=== PATIENT | female | born 1990 | race African-American/Black ===

== ENCOUNTER 2020-03-01 03:15 | Emergency (ER) | payer MEDICAID ==
[~2020-03-01] VITALS: Ht 177.8 cm; Wt 64.0 kg
[2020-03-01] MEDS ORDERED: ACETAMINOPHEN 325MG TABLET PO ONE (03:45)
[2020-03-01 05:28] LABS: CHLORIDE 109 mEq/L (98-107)
[2020-03-01 05:29] LABS: BASOPHILS % 0.7 % (0.0-2.0); EOSINOPHILS % 1.2 % (0.0-5.0); HEMATOCRIT. 36.7 % (36.0-48.0); HEMOGLOBIN. 12.6 g/dL (12.0-16.0); LYMPHOCYTES % 28.6 % (20.0-50.0); MEAN CORPUSCULAR VOLUME 90.5 fL (81.0-99.0); MONOCYTES % 5.8 % (2.0-8.0); NEUTROPHILS % 63.7 % (40.0-76.0); PLATELET 201 x1000/uL (130-400); RED BLOOD CELL COUNT 4.06 mill/uL (4.2-5.4); RED CELL DISTRIBUTION WIDTH 13.7 % (11.6-14.6)
[2020-03-01 05:32] LABS: ETHANOL BLOOD < 10 mg/dL
[2020-03-01 05:34] LABS: PROTHROMBIN TIME 11.2 sec (9.6-11.0)
[2020-03-01 05:45] LABS: HCG SCREEN NEGATIVE
[2020-03-01] MEDS ORDERED: POTASSIUM CHLORIDE 20MEQ TABLET SR PO ONE (05:45)
[2020-03-01] MEDS ORDERED: ACETAMINOPHEN 325MG TABLET PO PRN (09:00)
[2020-03-01] MEDS ORDERED: DEXT 5%/LACTATED RINGERS 1,000 ML IV SCH (09:00)
[2020-03-01] MEDS ORDERED: MORPHINE SULFATE 2 MG/ML CPJ (NOT FOR IM USE) IV PRN (09:00)
[2020-03-01] MEDS ORDERED: ONDANSETRON HCL 4MG/2ML INJ IV PRN (09:00)
[2020-03-01 13:07] VITALS: BP 111/70
== END 2020-03-01 13:21 | disposition left against medical advice (07) ==
LOC: ER 03:15 → CANBEDREQ 13:20 → ER 13:21
DX: S06.2X0A Diffuse traumatic brain injury without loss of consciousness, initial encounter (principal); R51 Headache; M54.2 Cervicalgia; R07.89 Other chest pain; X58.XXXA Exposure to other specified factors, initial encounter; Y93.89 Activity, other specified; Y92.89 Other specified places as the place of occurrence of the external cause; Y99.8 Other external cause status; E87.6 Hypokalemia; F10.129 Alcohol abuse with intoxication, unspecified; Y90.0 Blood alcohol level of less than 20 mg/100 ml
CPT/HCPCS: 36415; 71045; 80053; 80320; 81025; 84703; 85025; 86850; 86900; 99285; G0480